=== PATIENT | female | born 1995 | race Caucasian/White ===

== ENCOUNTER 2016-07-21 19:42 | Emergency (ER) | payer BC ==
[~2016-07-21] VITALS: Ht 152.4 cm; Wt 62.4 kg
[~2016-07-21 19:42] MED LIST: SULF-154 PO; Z.0.NO CURRENT MEDS
[2016-07-21 19:50] VITALS: BP 139/97; PULSE 103; RESP 17; TEMP 98.1; O2SAT 100
[2016-07-21 20:07] LABS: GLUCOSE,URINE NEG (NEG); KETONE, URINE NEG (NEG); NITRITE,URINE NEG (NEG); PH, URINE 6.5 (5.0-8.5)
[2016-07-21 20:11] LABS: BLOOD, URINE MOD (NEG); URINE COLOR YELLOW (YELLW/STRAW)
[2016-07-21 20:12] LABS: BACTERIA, URINE OCC /hpf; COMMENT (UR) CULT NOT INDICATED; CULTURE IF INDICATED CULT NOT INDICATED; SQUAMOUS EPITHELIAL CELL URINE > 8 /hpf (0-5)
[2016-07-21] MEDS ORDERED: birth control pills (20:13)
[2016-07-21] MEDS ORDERED: SULF1TAB23 PO (20:14)
[2016-07-21] MEDS ORDERED: SODIUM CHLORIDE 0.9% FLUSH 10 ML FLUSH IVF PRN (20:15)
[2016-07-21] MEDS ORDERED: KETOROLAC TROMETHAMINE 30 MG/ML (IVP) VIAL IVP ONE (20:15)
[2016-07-21] MEDS ORDERED: ONDANSETRON HCL 4 MG/2 ML VIAL IVP ONE (20:15)
[2016-07-21] MEDS ORDERED: HYDROmorphone HCL PF 2 MG/ML VIAL IM ONE (20:15)
[2016-07-21] MEDS ORDERED: HYDROmorphone HCL PF 2 MG/ML VIAL IV PUSH ONE (20:30)
[2016-07-21 20:34] LABS: AUTOMATED NEUTROPHIL # 9.8 TH/MM3 (1.8-7.7); BASOPHIL # 0.1 TH/MM3 (0-0.2); BASOPHIL % 0.4 % (0.0-2.0); EOSINOPHIL # 0.3 TH/MM3 (0-0.4); HEMATOCRIT 37.1 % (35.0-46.0); HEMO FLAGS DIFF FINAL; LYMPH % 21.1 % (9.0-44.0); MEAN CELL VOLUME 86.2 FL (80.0-100.0); MEAN CORPUSCULAR HGB CONC 34.8 % (32.0-36.0); MONO % 6.3 % (0.0-8.0); NEUT % 70.2 % (16.0-70.0); PLATELET COUNT 297 TH/MM3 (150-450); RED CELL DISTRIBUTION WIDTH 11.4 % (11.6-17.2); WHITE BLOOD COUNT 14.1 TH/MM3 (4.0-11.0)
[2016-07-21 20:44] LABS: POTASSIUM 3.6 MEQ/L (3.5-5.1)
[2016-07-21 20:46] LABS: BICARBONATE 26.5 MEQ/L (21.0-32.0)
[2016-07-21 21:21] VITALS: BP 115/74; PULSE 90; RESP 18; O2SAT 100
[2016-07-21] MEDS ORDERED: IOHEXOL 350 MG/ML 10 ML VIAL (for RAD DIAG) IV ONE (21:28)
--- NOTE | 2016-07-21 22:01 | RADHPO ---
EXAM DATE/TIME: 07/21/2016 21:21 [place] COMPARISON: No previous studies available for comparison. INDICATIONS : Bilateral flank pain since yesterday, UTI IV CONTRAST: 96 cc Omnipaque 350 (iohexol) IV ORAL CONTRAST: No oral contrast ingested. RADIATION DOSE: 6.96 CTDIvol (mGy) MEDICAL HISTORY : None ELEVATED wbc SURGICAL HISTORY : None. ENCOUNTER: Initial ACUITY: 2 days PAIN SCALE: 6/10 TECHNIQUE: Volumetric scanning of the abdomen and pelvis was performed. Using automated exposure control and ad justment of the mA and/or kV according to patient size, radiation dose was kept as low as reasonably achievable to obtain optimal diagnostic quality images. FINDINGS: LOWER LUNGS: The visualized lower lungs are clear. LIVER: Homogeneous density without lesion. There is no dilation of the biliary tree. No calcified gallston es. SPLEEN: Normal size without lesion. PANCREAS: Within normal limits. KIDNEYS: Tiny bilateral renal cysts. No evidence of stone or hydronephrosis. ADRENAL GLANDS: Within normal limits. VASCULAR: There is no aortic aneurysm. BOWEL/MESENTERY: The stomach, small bowel, and colon demonstrate no acute abnormality. There is no free intraperitone al air or fluid. ABDOMINAL WALL: Within normal limits. RETROPERITONEUM: There is no lymphadenopathy. BLADDER: No wall thickening or mass. REPRODUCTIVE: Minimal free pelvic fluid. No evidence of adnexal mass. INGUINAL: There is no lymphadenopathy or hernia. MUSCULOSKELETAL: Within normal limits for patient age. CONCLUSION: Tiny renal cysts. Minimal probable physiologic free pelvic fluid. Desmond Quinn MD on July 21, 2016 at 21:54 Board Certified Radiologist. This report was verified electronically.
[2016-07-21 22:06] VITALS: BP 102/47; PULSE 105; RESP 16; O2SAT 99
--- NOTE | 2016-07-21 22:24 | PD ---
HPI . Low back pain Chief Complaint: Flank/Kidney Pain Time Seen by Provider: 20:07 Travel History International Travel<30 days: No Contact w/Intl Traveler<30days: No Traveled to known affect area: No History of Present Illness HPI Chief complaint is low back pain. Onset was 24 hours ago. Pain is exacerbated by standing, sitting and laying. Pain is mildly improved by being on all fours. Pain is rated as 8/10. Patient reports some urinary symptoms which started a few days ago. She describes dysuria, hematuria and frequency of urination. She was evaluated yesterday and diagnosed with urinary tract infection. She was placed on Septra. She reports no improvement in her symptoms with 24 hours of antibiotics. She reports some associated nausea but no fever. [facility] Past Medical History Influenza Vaccination: Yes ?: Not LMP: 1 WEEK Social History Alcohol Use: No Tobacco Use: No Substance Use: No Allergies-Medications (Allergen,Severity, Reaction): Coded Allergies: No Known Allergies (Verified , 07/21/16) Reported Meds & Prescriptions Reported Meds & Active Scripts Active Reported Sulfamethoxazole-Trimethoprim 800-160 Mg Tab 1 Tab PO BID [ control pills] Review of Systems Except as stated in HPI: all other systems reviewed are Neg General / Constitutional: No: Fever, Chills Gastrointestinal: Positive: Nausea, No: Vomiting Genitourinary: Positive: Urgency, Frequency, Dysuria, Hematuria, Menorrhagia ( she states her last normal menstrual period was about 2 weeks ago. She has begun bleeding again over the last couple days.) Musculoskeletal: Positive: Pain (low back pain) Physical Exam Narrative GENERAL: Patient is on the stretcher on all fours. She looks uncomfortable. SKIN: Warm and dry. HEAD: Atraumatic. Normocephalic. EYES: Pupils equal and round. Extraocular movements are intact. ENT: No nasal bleeding or discharge. Mucous membranes pink and moist. NECK: Trachea midline. Neck is supple. CARDIOVASCULAR: Regular rate and rhythm. Heart sounds are normal. RESPIRATORY: No accessory muscle use. Lungs are clear with full air movement throughout. GASTROINTESTINAL: Abdomen soft. Right lower quadrant tenderness. Right CVA tenderness. Nondistended. : Normal female external genitalia. Old blood in the vaginal vault. No adnexal tenderness or masses. No cervical motion tenderness. MUSCULOSKELETAL: No obvious deformities. No edema. NEUROLOGICAL: Awake and alert. No obvious cranial nerve deficits. Motor grossly within normal limits. Normal speech. PSYCHIATRIC: Appropriate mood and affect; insight and judgment normal. Data Data Last Documented VS Vital Signs Date Time Temp Pulse Resp B/P Pulse Ox O2 Delivery O2 Flow Rate FiO2 07/21/16 22:06 105 16 102/47 99 Room Air 07/21/16 19:50 98.1 Orders Urinalysis - C+S If Indicated (07/21/16 19:55) Ed Urine Pregnancytest Poc (07/21/16 19:57) Basic Metabolic Panel (Bmp) (07/21/16 20:07) Complete Blood Count With Diff (07/21/16 20:07) Iv Access Insert/Monitor (07/21/16 20:07) Ketorolac Inj (Toradol Inj) (07/21/16 20:15) Ondansetron Inj (Zofran Inj) (07/21/16 20:15) Sodium Chloride 0.9% Flush (Ns Flush) (07/21/16 20:15) Hydromorphone Pf Inj (Dilaudid Pf Inj) (07/21/16 20:15) Hydromorphone Pf Inj (Dilaudid Pf Inj) (07/21/16 20:30) Ct Abd/Pel W Iv Contrast(Rout) (07/21/16 20:53) Iohexol 350 Inj (Omnipaque 350 Inj) (07/21/16 21:28) Gc And Chlamydia Pcr (07/21/16 22:18) Wet Prep Profile (07/21/16 22:18) Labs Laboratory Tests Test 07/21/16 07/21/16 20:00 20:23 Urine Color YELLOW Urine Turbidity CLEAR Urine pH 6.5 Urine Specific Thida 1.012 Urine Protein NEG mg/dL Urine Glucose (UA) NEG mg/dL Urine Ketones NEG mg/dL Urine Occult Blood MOD Urine Nitrite NEG Urine Bilirubin NEG Urine Leukocyte Esterase NEG Urine RBC 20-24 /hpf Urine WBC 3-5 /hpf Urine Squamous Epithelial > 8 /hpf Cells Urine Bacteria OCC /hpf Microscopic Urinalysis Comment CULT NOT INDICATED White Blood Count 14.1 TH/MM3 Red Blood Count 4.30 MIL/MM3 Hemoglobin 12.9 GM/DL Hematocrit 37.1 % Mean Corpuscular Volume 86.2 FL Mean Corpuscular Hemoglobin 30.0 PG Mean Corpuscular Hemoglobin 34.8 % Concent Red Cell Distribution Width 11.4 % Platelet Count 297 TH/MM3 Mean Platelet Volume 8.0 FL Neutrophils (%) (Auto) 70.2 % Lymphocytes (%) (Auto) 21.1 % Monocytes (%) (Auto) 6.3 % Eosinophils (%) (Auto) 2.0 % Basophils (%) (Auto) 0.4 % Neutrophils # (Auto) 9.8 TH/MM3 Lymphocytes # (Auto) 3.0 TH/MM3 Monocytes # (Auto) 0.9 TH/MM3 Eosinophils # (Auto) 0.3 TH/MM3 Basophils # (Auto) 0.1 TH/MM3 CBC Comment DIFF FINAL Differential Comment Sodium Level 141 MEQ/L Potassium Level 3.6 MEQ/L Chloride Level 105 MEQ/L Carbon Dioxide Level 26.5 MEQ/L Anion Gap 10 MEQ/L Blood Urea Nitrogen 12 MG/DL Creatinine 0.81 MG/DL Estimat Glomerular Filtration 90 ML/MIN Rate Random Glucose 90 MG/DL Calcium Level 9.0 MG/DL [facility] Medical Decision Making Medical Screen Exam Complete: Yes Emergency Medical Condition: Yes Differential Diagnosis Differential diagnosis of flank pain includes but is not limited to kidney stone , pyelonephritis, musculoskeletal pain, PE Narrative Course Patient presents with low back pain associated with some urinary symptoms. She also has right lower quadrant tenderness. Last Impressions Abdomen/Pelvis CT 07/21/[id number] Signed Impressions: Service Date/Time: , July 21, 2016 21:21 - CONCLUSION: Tiny renal cysts. Minimal probable physiologic free pelvic fluid. Desmond Quinn MD CBC & BMP Diagram 07/21/16 20:23 UA is negative with the exception of blood. However, she reports vaginal bleeding. The etiology of her flank and abdominal pain has not yet been determined. I will proceed with a pelvic examination. Pelvic exam is negative. Patient will be treated for musculoskeletal low back pain. Diagnosis Primary Impression: Back pain Qualified Code: M54.5 - Acute right-sided low back pain without sciatica Patient Instructions: Flank Pain (ED), General Instructions, Narcotic given in the ED Med/Other Pt SpecificInfo: Prescription(s) given Scripts Cyclobenzaprine (Flexeril)10 Mg Tab10 Mg PO TID #30 TAB Ref 0 Prov:Sandra Morales MD 07/21/16 Tramadol (Ultram)50 Mg Tab50 Mg PO Q4H PRN (PAIN) #12 TAB Ref 0 Prov:Sandra Morales MD 07/21/16 Disposition: 01 DISCHARGE HOME Condition: Stable Sandra Morales MD July 21, 2016 22:24
[2016-07-21] MEDS ORDERED: CYCL1TAB29 PO (22:43)
[2016-07-21] MEDS ORDERED: ULTR50TA5 PO (22:43)
[2016-07-22 13:43] LABS: CHLAMYDIA PCR NOT DETECTED (NOT DETECT); NEISSERIA PCR NOT DETECTED (NOT DETECT)
== END 2016-07-21 22:57 | disposition home or self-care (01) ==
LOC: PHED 19:42
DX: M54.5 Low back pain (principal)
CPT/HCPCS: 74177; 80048; 81001; 84703; 85025; 87210; 87491; 87591; 96374; 96375; 99284; J1170; J1885; J2405; Q9967